=== PATIENT | female | born 1995 | race Caucasian/White ===

== ENCOUNTER 2018-06-19 22:22 | Emergency (ER) | END 2018-06-20 01:49 | disposition home or self-care (01) ==

== ENCOUNTER 2018-09-14 22:11 | Emergency (ER) | payer SELFPAY ==
[~2018-09-14] VITALS: Ht 154.9 cm; Wt 69.8 kg
[~2018-09-14 22:11] MED LIST: ACET325T33 PO; HC1C30 TOP; NITR-58 PO
[2018-09-14 22:14] VITALS: BP 132/73; PULSE 60; RESP 18; Ht 154.9 cm; Wt 69.8 kg
== END 2018-09-14 22:30 | disposition left against medical advice (07) ==
LOC: FTE 22:11
DX: Z53.21 Procedure and treatment not carried out due to patient leaving prior to being seen by health care provider (principal)